=== PATIENT | female | born 1980 | race Caucasian/White ===

== ENCOUNTER 2018-02-16 13:32 | Emergency (ER) | payer MEDICAID ==
[~2018-02-16] VITALS: Ht 177.8 cm; Wt 55.5 kg
[2018-02-16 13:36] VITALS: BP 127/77
[2018-02-16] MEDS ORDERED: LIDOCAINE-MPF 1%, 2ML ONE (14:18)
[2018-02-16] MEDS ORDERED: LIDOCAINE-MPF 1%, 5ML INFIL ONE (14:30)
== END 2018-02-16 15:19 | disposition home or self-care (01) ==
LOC: ED 14:07
DX: S91.312A Laceration without foreign body, left foot, initial encounter (principal); W26.9XXA Contact with unspecified sharp object(s), initial encounter; Y93.01 Activity, walking, marching and hiking; Y99.8 Other external cause status; Y92.828 Other wilderness area as the place of occurrence of the external cause
CPT/HCPCS: 12041; 99284